=== PATIENT | female | born 1980 | race Caucasian/White ===

== ENCOUNTER 2022-12-18 14:20 | Emergency (ER) | payer OTHER ==
[2022-12-18 14:58] VITALS: BP 132/87; PULSE 86; RESP 18; TEMP 97.8; BMI 22.6
[2022-12-18] MEDS ORDERED: CEPHALEXIN MONOHYDRATE 500 MG CAPSULE (UD) PO ONE (15:02)
== END 2022-12-18 15:20 | disposition home or self-care (01) ==
LOC: FER 14:20
DX: M79.645 Pain in left finger(s) (principal); R22.32 Localized swelling, mass and lump, left upper limb; L03.012 Cellulitis of left finger
CPT/HCPCS: 99283-25